=== PATIENT | male | born 1950 | race Caucasian/White ===

== ENCOUNTER 2019-01-20 07:58 | Outpatient (RCR) | payer MEDICARE, BC, SELFPAY ==
[2019-01-19 09:19] LABS: IFOB Positive Control Positive; Immunochemical Fecal Occult Bl Negative (N)
[2019-01-20 09:04] LABS: IFOB Positive Control Positive; Immunochemical Fecal Occult Bl Negative (N)
== END 2019-04-19 23:59 | disposition home or self-care (01) ==
LOC: ANHLAB 07:58
PROVIDERS: PCP Internal Medicine; Visit Provider Internal Medicine
DX: D64.9 Anemia, unspecified (principal)
CPT/HCPCS: 82274

== ENCOUNTER 2020-11-13 13:35 | Emergency (ER) | payer MEDICARE, BC, SELFPAY ==
[2020-11-13 13:45] VITALS: BP 132/83; PULSE 79; RESP 18; TEMP 36.9; O2SAT 100
--- NOTE | 2020-11-13 13:58 | ED.WOUNDLAC ---
HPI - Wound/Laceration General Chief Complaint: Wound/Laceration Stated Complaint: cut lft index finger History of Present Illness HPI narrative: This is a 70-year-old male comes in complaining of a laceration to his left index finger states he was putting something on the ground got caught in between it Related Data Home Medications Medication Instructions Recorded Confirmed aspirin 81 mg tablet,delayed 81 mg PO DAILY 03/22/19 08/26/20 release multivitamin 1 tablet PO DAILY 03/22/19 08/26/20 omega-3 fatty acids 1,000 mg 2,000 mg PO BID cap 08/02/19 08/26/20 capsule Ocuvite Preservision 11/13/20 Allergies Allergy/AdvReac Type Severity Reaction Status Date / Time No Known Allergies Allergy Verified 08/25/20 08:21 Review of Systems Review of Systems: Left index finger laceration All systems reviewed & are unremarkable except as noted in HPI and below PMFSH Past Medical History Medical History (Updated 11/13/20 @ 15:02 by Anish Reyes NP) Abnormal finding of blood chemistry, unspecified Allergy to ELLI inhibitors Anemia Benign essential hypertension Blood donor, platelets Blood donor, whole blood BMI 25.0-25.9,adult BMI 26.0-26.9,adult BMI 27.0-27.9,adult Colon cancer screening Dry cough Encounter for Medicare annual wellness exam Encounter for routine adult health examination without abnormal findings Encounter for screening for COVID-19 Encounter for special screening examination for neoplasm of prostate Follow up Former smoker Hearing loss History of prostate cancer Hyperlipidemia IGT (impaired glucose tolerance) 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 Please see nursing chart for further information. There is no relevant family history pertinent to the presenting complaint. Exam Narrative: GENERAL:Well-appearing, well-nourished, and in no acute distress. HEAD:Normocephalic, atraumatic. EYES: PERRLA and EOMI. ENT: Nares clear, no rhinorrhea or epistaxis. Mucous membranes moist. CHEST: Clear to auscultation. No respiratory distress. EXTREMITIES: Normal range of motion. No edema. Left index finger laceration with a flap patient able to move his fingers without any difficulty SKIN: Warm, dry, no rash. NEURO: No focal deficits. Alert and oriented x3. Course Vital Signs Vital signs: Vital Signs Temperature 98.4 F 11/13/20 13:45 Pulse Rate 79 11/13/20 13:45 Respiratory Rate 18 11/13/20 13:45 Blood Pressure 132/83 11/13/20 13:45 Pulse Oximetry 100 11/13/20 13:45 Temperature 98.4 F 11/13/20 13:45 Pulse Rate 79 11/13/20 13:45 Respiratory Rate 18 11/13/20 13:45 Blood Pressure 132/83 11/13/20 13:45 Pulse Oximetry 100 11/13/20 13:45 Procedures Laceration Laceration 1: Date: 11/13/20 Time: 14:41 Site: upper extremity (Left index finger) Side (If applicable): left Size (cm): 4 Description: flap and irregular Depth: simple, single layer Local Anesthetic: lidocaine 1% Amount of anesthesia used (mL): 1 Pre-repair: irrigated ====== Skin Level ====== Skin layer closed with: vicryl Size (cm): 5-0 Number of sutures: 10 Technique: simple, interrupted ====== Subcutaneous Layer ====== ====== Muscle Layer ====== ====== Tendon Layer ====== Dressing: The area was prepped and draped in the usual sterile fashion. Local anesthesia was achieved using 1mlcc of Lidocai
== END 2020-11-13 15:23 | disposition home or self-care (01) ==
PROVIDERS: Emergency Provider Nurse Practitioner Family; PCP Internal Medicine
DX: S61.211A Laceration without foreign body of left index finger without damage to nail, initial encounter (principal); Z79.82 Long term (current) use of aspirin; Z87.891 Personal history of nicotine dependence; W45.8XXA Other foreign body or object entering through skin, initial encounter
CPT/HCPCS: 12002; 99213; G0463

== ENCOUNTER → 2020-11-15 00:43 | Outpatient (CLI) | payer MEDICARE, BC, SELFPAY ==
[2020-11-15 18:08] LABS: SARS-CoV-2 RNA PCR Negative
== END ==
PROVIDERS: PCP Internal Medicine; Visit Provider Internal Medicine
DX: Z20.822 Contact with and (suspected) exposure to COVID-19 (principal)
CPT/HCPCS: C9803; U0003; U0005

== ENCOUNTER 2023-07-22 07:55 | Outpatient (CLI) | payer MEDICARE, BC, SELFPAY ==
--- NOTE | ~2023-07-22 | XR_ITS ---
EXAMINATION: 1. XR hand BI arthritis min 3V 2. XR wrist RT min 3V 3. XR wrist LT min 3V DATE: 07/22/2023 08:23 INDICATION: Primary osteoarthritis, right hand. TECHNIQUE: 4 views of right hand and 4 views of left hand on a total of 7 radiographs, 4 views of rig ht wrist comment 4 views of left wrist were obtained. COMPARISON: None. FINDINGS: RIGHT WRIST: Bone alignment is normal. No fracture. There is severe osteoarthritis of distal radiouln ar joint, mild osteoarthritis of triscaphe joint, and severe osteoarthritis of first carpometacarpal joint. RIGHT HAND: Bone alignment is normal. No fracture. There is moderate osteoarthritis of second and thi rd metacarpophalangeal joints and mild osteoarthritis of some of first interphalangeal joint and seco nd and third distal interphalangeal joints. LEFT WRIST: Bone alignment is normal. No fracture. There is mild osteoarthritis of distal radioulnar joint and severe osteoarthritis of first carpometacarpal joint. LEFT HAND: Bone alignment is normal. No fracture. There is moderate osteoarthritis of second metacarp ophalangeal joint and mild osteoarthritis of first and third metacarpophalangeal joints. There is mil d osteoarthritis of first interphalangeal joint and third proximal and distal interphalangeal joints. There is moderate osteoarthritis of second distal interphalangeal joint. IMPRESSION: 1. Polyarticular osteoarthritis. Reviewed, dictated and finalized at location A. IMPRESSION: 1. Polyarticular osteoarthritis. IMPRESSION: 1. Polyarticular osteoarthritis.
== END 2023-07-22 07:56 | disposition home or self-care (01) ==
PROVIDERS: PCP Internal Medicine; Visit Provider Internal Medicine
DX: M19.041 Primary osteoarthritis, right hand (principal); M19.042 Primary osteoarthritis, left hand; M19.032 Primary osteoarthritis, left wrist; M19.031 Primary osteoarthritis, right wrist
CPT/HCPCS: 73110; 73130

== ENCOUNTER 2024-10-15 00:21 | Day surgery (SDC) | payer MEDICARE, BC, SELFPAY ==
[2024-10-12 09:49] VITALS: BMI 25.9
--- OUTSIDE RECORDS SUMMARY | 2024-10-15 00:23 | XMS_ITS | Clinical Summary ---
Author Organization [facility] Address [address] [place] [address] Phone Care Team Providers Care Pharmacist Apprentice Name Role Phone Bethel Steven MD Primary Care Provider [phone] Allergies No known active allergies Medications montelukast (SINGULAIR) 10 mg tablet TK 1 T PO QD IN THE ROSALINE 0 8 Active losartan (COZAAR) 100 mg tablet Take 1 tablet (100 mg total) by mouth daily 3 Active azelastine (ASTELIN) 137 mcg (0.1 %) nasal spray Administer 1 spray into each nostril 2 (two) times a day Use in each nostril as directed 30 mL 6 4 Active meloxicam (MOBIC) 15 mg tablet Take 1 tablet (15 mg total) by mouth daily 5 Active Active Problems Problem Noted Date Diagnosed Date Bilateral impacted cerumen 06/13/2018 Asymmetric SNHL (sensorineural hearing loss) Assessment & Plan (06/13/2018 9:50 AM CDT): No change in hearing from his previous visit. Return to clinic in 2 years unless other issues arise. Hearing loss 05/20/2015 Neurological deficit present 05/20/2015 Allergic rhinitis due to mold 05/20/2015 Allergic rhinitis due to house dust mite 016 Subjective tinnitus 05/20/2015 Arthralgia of hip 10/09/2009 Encounters Date Type Department Care Team Description 08/22/2024 Telephone [facility] Otolaryngology [address] [place] [address] Jevon Alice, from Last 3 Months Medical History Medical History Date Comments Mixed conductive and sensorineural hearing loss Family History Medical History Relation Name Comments Hypertension Mother Family history of hypertension - (Added by TW Conv) Relation Name Status Comments Mother Social History Tobacco Use Types Packs/Day Years Used Date Smoking Tobacco: Former Smokeless Tobacco: Never AUDIT-C Answer Date Recorded Q1: How often do you have a drink containing alc ohol? 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 Gender Identity Not on file Sexual Orientation Not on file Obstetrics History Last Filed Vital Signs Vital Sign Reading Time Taken Comments Blood Pressure 124/86 05/17/2016 10:25 AM CDT Pulse - - Temperature - - Respiratory Rate - - Oxygen Saturation - - Inhaled Oxygen Concentration - - Weight 80.7 kg (178 lb) 02/02/2023 8:58 AM ADJUNCT PHYSICS INSTRUCTOR Height 172.7 cm (5' 8) 02/02/2023 8:58 AM ADJUNCT PHYSICS INSTRUCTOR Body Mass Index 27.06 02/02/2023 8:58 AM ADJUNCT PHYSICS INSTRUCTOR Plan of Treatment Health Maintenance Due Date Last Done Comments Colon Cancer Screening-Colonoscopy 1950 Depression Screening 1950 Fall Risk Assessment 1950 Hepatitis C Screening 1950 Hepatitis B Screening 01/24/1968 Abdominal Aortic Aneurysm (A AA) Screen 2015 Well Visit 65+ 2015 Zoster Vaccine (2 of 3) 08/23/2018 06/28/2018, 09/10 Pneumococcal vaccine 65+ (2 of 2 - PCV20 or PCV21) 09/09/2018 09/09/2017 Influenza Vaccine (#1) 2024 9, 11/27/2017, 12/14/2016, Additional history exists DTaP/Tdap/Td Vaccine (2 - Td or Tdap) 09/10/2027 09/09/2017 Insurance MEDICARE [facility] Care Teams Pharmacist Apprentice Relationship Specialty Start Date End Date Bethel Steven MD [address] [place] [address] PCP - General 06/25/16
--- OUTSIDE RECORDS SUMMARY | 2024-10-15 00:23 | XMS_ITS | Clinical Summary ---
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 [employer] Name Role Phone Unavailable Primary Care Provider Unavailabl e Social History Tobacco Use Types Packs/Day Years Used Date Smoking Tobacco: Never Assessed Sex and Gender Information Value Date Recorded Sex Assigned at Not on file Legal Sex Male 4:14 PM CDT Gender Identity Not on file Sexual Orientation Not on file Plan of Treatment Health Maintenance Due Date Last Done Comments Colorectal Cancer Screening Colonoscopy (10 Years) 1950 Hepatitis C 01/24/1968 DTaP, Tdap and Td Vaccines ( 1 - Tdap) 1969 Pneumococcal Vaccine: 50+ Ye ars (1 of 1 - PCV) 01/24/2000 Zoster Vaccines (1 of 2) 01/24/2000 COVID-19 Vaccine ( - 2023-2 5 season) 2023 RSV Immunization or 60+ Years (1 - 1-dose 75+ series) 2025 Meningococcal B Vaccine Aged Out No l onger eligible based on patient's age to complete this topic Meningococcal Vaccine Aged Out No emi anabella eligible based on patient's age to complete this topic RSV Immunizations Under 20 Months Aged Out No longer eligible based on patient's age to complete this topic
--- OUTSIDE RECORDS SUMMARY | 2024-10-15 00:23 | XMS_ITS | Clinical Summary ---
Author Organization [facility] Address [address] [place] [id number] Care Team Providers Care Watch Commander Name Role Phone Unavailable Primary Care Provider Unavailabl e Social History Tobacco Use Types Packs/Day Years Used Date Smoking Tobacco: Never Assessed Sex and Gender Information Value Date Recorded Sex Assigned at Not on file Legal Sex Male 11:[address] JUDGE Gender Identity Not on file Sexual Orientation Not on file Plan of Treatment Health Maintenance Due Date Last Done Comments Hepatitis C Virus (HCV) Screening 1950 Cologuard 1995 Colonoscopy 1995 Colorectal Cancer Screening 1995 Immunochemical Fecal Occult Blood 1995 Zoster Immunization (2 of 3) 08/23/2018 06/28/2018, 09/11/2011 Pneumococcal Immunization (50+ years) (2 of 2 - PCV20 or PCV21) 09/09/2018 09/09/2017 SARS-COV-2 Immunization ( - season) 2023 Influenza Immunization (#1) 10/29/202411/28, 11/27/2017, 12/14/2016, Additional history exists Respiratory Syncytial Virus (RSV) Immunization (Adult) (1 - 1-dose 75+ series) 2025 DTaP/Tdap/Td Immunization Discontinued 09/09/2017 Pneumococcal Immunization Combined Discontinued 09/09/2017 TdaP Immunization Completed 09/09/2017 Hepatitis B Immunization Aged Out No longer eligible based on patient's age to complete this topic Human Papillomavirus (HPV) Immunization Aged Out No longer eligible based on patient's age to complete this topic Meningococcal Immunization (ACWY) Aged Out No longer eligible based on patient's age to complete this topic Rotavirus Immunization Aged Out No lo nger eligible based on patient's age to complete this topic
[2024-10-15 12:04] VITALS: BP 138/86; PULSE 82; RESP 16; TEMP 36.4; O2SAT 98
[2024-10-15] MEDS: LACTATED RINGERS 1,000 ML 150 ML IV CONT (12:17)
--- NOTE | 2024-10-15 12:37 | WPDANESEPPF ---
Anes - Initial Pre Proc Eval Procedure: Operation Date: 10/15/24 13:15 Proposed Procedures p Diagnostic Colonoscopy - Rob Ramos MD Date/Time: 10/15/24 12:37 Surgeon: Rob Ramos MD Pre Op Diagnosis: Other fecal abnormalities Patient Data Age: 74 Gender: M Height: 1.73 m Weight: 74.2 kg Last Vital Signs Temp 36.4 C L 10/15/24 12:04 Pulse 82 10/15/24 12:04 Resp 16 10/15/24 12:04 BP 138/86 10/15/24 12:04 Pulse Ox 98 10/15/24 12:04 O2 Del Method Room Air 10/15/24 12:04 Allergies Allergy/AdvReac Type Severity Reaction Status Date / Time ELLI Inhibitors Allergy Unknown Verified 10/15/24 12:02 Home Medications ?Medication ?Instructions ?Recorded ?Confirmed ?Type aspirin 81 mg tablet,delayed 81 mg PO DAILY 03/22/19 10/15/24 History release (Adult Low Dose Aspirin) multivitamin 1 tablet PO DAILY 03/22/19 10/15/24 History omega-3 fatty acids 1,000 mg 2,000 mg PO BID 08/02/19 10/15/24 History capsule (Fish Oil Concentrate) Ocuvite Preservision See Rx Instructions .Route .COMPLEX 11/13/20 10/15/24 History vit 1 tablet PO DAILY 05/29/21 10/15/24 History H-[id number]-caxlvvvmr-[id number] 500 mg-50 mg-25 mg-40 mg tablet (Bioflex) montelukast 10 mg tablet See Rx Instructions .Route 07/02/24 10/15/24 Rx .COMPLEX #90 tabs losartan 100 mg tablet See Rx Instructions .Route 08/13/24 10/15/24 Rx .COMPLEX #90 tabs meloxicam 15 mg tablet 15 mg PO DAILY #90 tabs 09/02/24 10/15/24 Rx Patient hx anesthesia problems: none Family hx anesthesia problems: none Results Review: All pre-operative results and documents have been reviewed as part of the pre-operative evaluation. [facility] Past Medical History Medical History DJD (degenerative joint disease) Borderline abnormal TFTs Other osteoarthritis of spine Orthostatic hypotension Muscular aches Encounter for screening for other viral diseases Chest pain Ankle edema, bilateral Abnormal PSA acceleration with normal PSA Right hip pain Laceration of left index finger w/o foreign body w/o damage to nail Encounter for screening for COVID-19 Personal history of COVID-19 Seasonal allergies History of prostate cancer BMI 27.0-27.9,adult Former smoker Allergy to ELLI inhibitors BMI 26.0-26.9,adult Follow up Encounter for routine adult health examination without abnormal findings Dry cough BMI 25.0-25.9,adult Colon cancer screening Abnormal finding of blood chemistry, unspecified Encounter for Medicare annual wellness exam Benign essential hypertension Syncope IGT (impaired glucose tolerance) Hyperlipidemia Blood donor, platelets Blood donor, whole blood On [facility]ci 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 Anemia Family History Family History Mother Hypertension Father Cerebrovascular accident Social History Social History (Updated 10/15/24 @ 12:38 by Matt Wang MD) Smoking status: Former smoker Smoking end date: 02/28/78 Alcohol intake: current Drinks per week: 10 Alcohol use details: BEER Substance use: never Substance use type: does not use Lack of Transportation: No Lack of Food: Never True Current Housing: I Have Housing Concerned About Future Housing: No Difficulty Paying Gas/Electric Bills: No Difficulty Paying for Meds: No Currently Unemployed: No Education: Trade/Vocational Certificate Difficulty w/ Childcare or Family Care: No Living arrangements: with family Gender identity (if verbalized by the patient): Male Spiritual care concerns: No Anes - Eval Final PreProcedure Day of Procedure 10/15/24 12:37 Patient weight: normal Heart: regular rate and rhythm Lungs: clear to auscultation Airway: Mallampati scale class II Neurological: alert and oriented Last oral intake: >/= 8 hours ASA classification: III Emergent: no Anesthetic plan: proceed Anesthesia type and monitoring: general GIVS and standard monitoring Results Review: All pre-operative results and documents have been reviewed as part of the pre-operative evaluation. Informed Consent: The patient's anesthetic plan and its attendant risks and benefits were discussed with the patient/family/POA. Questions were solicited and answers provided to the satisfaction of the patient/family/POA.
--- NOTE | 2024-10-15 13:21 | PM.HPGS ---
History of Present Illness History of Present Illness Consent: Risks, benefits, and alternatives have been discussed and questions answered. Patient agrees to proceed with procedure. Chief complaint: Other fecal abnormalities Narrative: Pasquale Myers is a 74 year old male with positive cologuard, last colonoscopy about 14 years ago Review of Systems Review of Systems: All systems reviewed & are unremarkable except as noted in HPI and below PMFSH Past Medical History Medical History (Updated 10/15/24 @ 13:21 by Rob Ramos MD) Positive colorectal cancer screening using Cologuard test DJD (degenerative joint disease) Borderline abnormal TFTs Other osteoarthritis of spine Orthostatic hypotension Muscular aches Encounter for screening for other viral diseases Chest pain Ankle edema, bilateral Abnormal PSA acceleration with normal PSA Right hip pain Laceration of left index finger w/o foreign body w/o damage to nail Encounter for screening for COVID-19 Personal history of COVID-19 Seasonal allergies History of prostate cancer BMI 27.0-27.9,adult Former smoker Allergy to ELLI inhibitors BMI 26.0-26.9,adult Follow up Encounter for routine adult health examination without abnormal findings Dry cough BMI 25.0-25.9,adult Colon cancer screening Abnormal finding of blood chemistry, unspecified Encounter for Medicare annual wellness exam Benign essential hypertension Syncope IGT (impaired glucose tolerance) Hyperlipidemia Blood donor, platelets Blood donor, whole blood 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 Anemia Family History Family History Mother Hypertension Father Cerebrovascular accident Social History Social History (Updated 10/15/24 @ 12:38 by Matt Wang MD) Smoking status: Former smoker Smoking end date: 02/28/78 Alcohol intake: current Drinks per week: 10 Alcohol use details: BEER Substance use: never Substance use type: does not use Lack of Transportation: No Lack of Food: Never True Current Housing: I Have Housing Concerned About Future Housing: No Difficulty Paying Gas/Electric Bills: No Difficulty Paying for Meds: No Currently Unemployed: No Education: Trade/Vocational Certificate Difficulty w/ Childcare or Family Care: No Living arrangements: with family Gender identity (if verbalized by the patient): Male Spiritual care concerns: No Meds Home Medications and Allergies Home Medications ?Medication ?Instructions ?Recorded ?Confirmed ?Type aspirin 81 mg tablet,delayed 81 mg PO DAILY 03/22/19 10/15/24 History release (Adult Low Dose Aspirin) multivitamin 1 tablet PO DAILY 03/22/19 10/15/24 History omega-3 fatty acids 1,000 mg 2,000 mg PO BID 08/02/19 10/15/24 History capsule (Fish Oil Concentrate) Ocuvite Preservision See Rx Instructions .Route .COMPLEX 11/13/20 10/15/24 History vit 1 tablet PO DAILY 05/29/21 10/15/24 History L-mffkctm-aolynyszk-rutin-[id number] 500 mg-50 mg-25 mg-40 mg tablet (Bioflex) montelukast 10 mg tablet See Rx Instructions .Route 07/02/24 10/15/24 Rx .COMPLEX #90 tabs losartan 100 mg tablet See Rx Instructions .Route 08/13/24 10/15/24 Rx .COMPLEX #90 tabs meloxicam 15 mg tablet 15 mg PO DAILY #90 tabs 09/02/24 10/15/24 Rx Allergies Allergy/AdvReac Type Severity Reaction Status Date / Time ELLI Inhibitors Allergy Unknown Verified 10/15/24 12:02 Vital Signs Vital Signs - 24 hr 10/15/24 12:04 Temperature 97.5 F L Pulse Rate 82 Respiratory Rate 16 Blood Pressure 138/86 Pulse Oximetry 98 Oxygen Delivery Room Air Exam Const: General: comfortable and no acute distress HENMT: Face/Nose/Sinus: Normal nares present Eyes: General: appearance normal, both eyes and all related structures Neck: Neck: no JVD Resp: Auscultation: clear to auscultation bilaterally Cardio: Rate: regular rate Rhythm: regular rhythm GI: Inspection: non-distended GI Palp: Yes Soft to palpation Skin: General skin exam: normal color Neuro: Speech: normal speech Extrem: General: normal to inspection Psych: Mental Status: mental status grossly normal Assessment and Plan Assessment and plan (1) Positive colorectal cancer screening using Cologuard test: Code(s): R19.5 - Other fecal abnormalities Status: Acute Assessment and Plan: colonoscopy
--- NOTE | 2024-10-15 13:37 | S_PTH ---
PATIENT: Pasquale Myers LOC: [facility]#:[id number] AGE/SX: 74/M ROOM: RE10/15/[address]: Rob Ramos MD : 1950 BED: DIS: 10/15/2024 SPEC #: [id number] RECD: 10/15/24 13:41 STATUS: SARIAH REDaljit #: [id number] MARILY: 10/15/24 13:[address]: Rob Ramos DEPT: [facility] Surgical RECD BY: Jesus Conway ENTERED: 10/15/24 13:42 SP TYPE: Surgical OTHR DR: Bethel Steven MD Tissues: A - Colon Polypectomy B - Colon Polypectomy Procedures: Hematoxylin and Eosin Stain Gross and Microscopic Level 4
[2024-10-15 13:39] VITALS: BP 90/65; PULSE 69; RESP 19; O2SAT 95
[2024-10-15 13:49] VITALS: BP 96/69; PULSE 64; RESP 24; O2SAT 96
[2024-10-15 13:59] VITALS: BP 138/81; PULSE 61; RESP 18; O2SAT 96
== END 2024-10-15 14:09 | disposition home or self-care (01) ==
PROVIDERS: PCP Internal Medicine; Referring Provider Internal Medicine; Visit Provider Internal Medicine Gastroenterology
PROC: 0DJD8ZZ Inspection of Lower Intestinal Tract, Via Natural or Artificial Opening Endoscopic (ICD-10-PCS; CPT 45378; principal; 2024-10-15 13:15)
DX: D12.0 Benign neoplasm of cecum (principal); K63.5 Polyp of colon; K64.8 Other hemorrhoids; K57.30 Diverticulosis of large intestine without perforation or abscess without bleeding; I10 Essential (primary) hypertension; E78.5 Hyperlipidemia, unspecified; D64.9 Anemia, unspecified; I95.1 Orthostatic hypotension; M19.90 Unspecified osteoarthritis, unspecified site; M47.9 Spondylosis, unspecified; Z79.82 Long term (current) use of aspirin; Z79.899 Other long term (current) 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; Z87.891 Personal history of nicotine dependence; Z85.46 Personal history of malignant neoplasm of prostate
CPT/HCPCS: 45385; 88305; J2704; J7120

== ENCOUNTER 2025-02-07 10:26 | Outpatient (CLI) | payer MEDICARE, BC, SELFPAY ==
--- NOTE | ~2025-02-07 | XR_ITS ---
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 Technique: 2 views obtained. Findings: The lungs are clear, no effusion. No pneumothorax. Heart is normal size. Mediastinal and hilar contours are within normal limits. Bony thorax no acute abnormality. Impression: No acute cardiopulmonary abnormality. Reviewed, dictated and finalized at location P. BRUSH ASSEMBLER Impression: No acute cardiopulmonary abnormality.
--- NOTE | ~2025-02-07 | XR_ITS ---
Sinuses: Indication: Pain Comparison: None Technique: Multiple views obtained. Findings: No osseous destruction or fracture identified. The left frontal sinus appears aplastic. The remaining visualized sinuses are unremarkable. IMPRESSION: No significant sinusitis Reviewed, dictated and finalized at location P. IC SEPARATOR OPERATOR IMPRESSION: No significant sinusitis
== END 2025-02-07 10:27 | disposition home or self-care (01) ==
PROVIDERS: PCP Internal Medicine; Visit Provider Internal Medicine
DX: R05.3 Chronic cough (principal); R07.89 Other chest pain; J34.89 Other specified disorders of nose and nasal sinuses
CPT/HCPCS: 70220; 71046